=== PATIENT | male | born 1985 ===

== ENCOUNTER 2020-12-31 19:12 | Emergency (ER) | payer SELFPAY ==
[~2020-12-31] VITALS: Ht 182.9 cm; Wt 74.4 kg
[2020-12-31] MEDS ORDERED: AMOCLA875 PO (20:06)
== END 2020-12-31 20:57 | disposition home or self-care (01) ==
LOC: ER 19:12
DX: S61.451A Open bite of right hand, initial encounter (principal); F17.200 Nicotine dependence, unspecified, uncomplicated; W54.0XXA Bitten by dog, initial encounter
CPT/HCPCS: 29125; 73120; 99283-25; A9270